=== PATIENT | female | born 1945 | race Caucasian/White ===

== ENCOUNTER 2024-01-10 05:47 | Day surgery (SDC) | payer MEDICARE ==
[2024-01-09 14:07] VITALS: BMI 40.7
[2024-01-10] MEDS ORDERED: SODIUM CHLORIDE 0.9% 1,000 ML in EMPTY BAG 1 BAG IV SCH (06:18)
[2024-01-10] MEDS ORDERED: ALPRAZolam 0.5 MG TAB PO PRN (06:18)
[2024-01-10] MEDS ORDERED: ALPRAZolam 0.25 MG TAB PO PRN (06:18)
[2024-01-10] MEDS: SODIUM CHLORIDE 0.9% 1,000 ML IV ONE (06:30)
[2024-01-10] MEDS ORDERED: ASPIRIN 325 MG TAB PO ONE (07:00)
[2024-01-10 07:07] VITALS: TEMP 97.8
[2024-01-10] MEDS: IV FLUID CONTINUATION 1,000 ML IV ONE (07:21)
[2024-01-10] MEDS ORDERED: VERAPAMIL 2.5 MG/ML 2 ML AMP ONE (07:26)
[2024-01-10] MEDS ORDERED: HEPARIN SODIUM 1,000 UN/ML (10ML VL) ONE (07:27)
[2024-01-10] MEDS ORDERED: fentaNYL (PF) 50 MCG/ML 2 ML AMP ONE (07:27)
[2024-01-10] MEDS ORDERED: LIDOCAINE 1% INJ 10MG/ML (20 ML MDV) ONE (07:27)
[2024-01-10] MEDS: BENZOCAINE SPRAY 1 CAN TOPICAL ONE (07:30)
[2024-01-10] MEDS: MIDAZOLAM 2 MG/2 ML VIAL IVP ONE ×2 (07:35→07:38)
[2024-01-10] MEDS: fentaNYL (PF) 50 MCG/ML 2 ML AMP IVP ONE (07:35)
--- NOTE | 2024-01-10 08:02 | P.PCN ---
Date of Procedure: 01/10/24 Description of Procedure: Indication: Aortic stenosis Procedure Description: After explaining the procedure to the patient, it's risk and complications, blood pressure, heart rate and O2 saturation were monitored. The throat was sprayed with Cetacaine. Patient received 3 mg intravenous Versed, 50 mcg intra venous fentanyl. The probe was introduced into the esophagus without difficulty. Images were obtained. Following that, the probe was removed. There was no immediate complication. Findings: Left atrial size is normal, left atrial appendage is normal. Left ventricular size and systolic function are normal. The mitral valve revealed mild mitral annulus calcification, the tricuspid valve is normal. The aortic valve is heavily calcified possible bicuspid or tricuspid with fused cusps. The aortic valve area by planimetry was 0.8 cm. Descending thoracic aorta showed mild atherosclerotic changes. No pericardial effusion was noted. Contrast bubble study revealed no shunting across the interatrial septum. Doppler: Pulse wave and color Doppler were obtained, and revealed mild mitral and tr icuspid regurgitation no aortic regurgitation was noted. The mean gradient across the aortic valve was 28 mmHg with a peak of 42 mmHg. There is no shunting across the interatrial septum. Conclusion: 1. Normal left ventricular size and systolic function 2. Moderate to severe aortic stenosis with no aortic regurgitation and the valve area by planimetry of 0.8 cm 3. Mild mitral and tricuspid regurgitation 4. Mild atherosclerotic changes of the descending thoracic aorta 5. No shunting across the interatrial septum Duration of sedation 15 minutes
[2024-01-10] MEDS: LIDOCAINE 1% INJ 10MG/ML (20 ML MDV) SQ ONE ×3 (08:05→08:14)
[2024-01-10] MEDS: VERAPAMIL SYRINGE (5 MG/10 ML) INTRAARTER ONE (08:14)
[2024-01-10] MEDS: HEPARIN SODIUM 1,000 UN/ML (10ML VL) IVP ONE (08:45)
[2024-01-10] MEDS: IOPAMIDOL-370 200ML BTL INJ ONE (09:00)
[2024-01-10 09:09] LABS: O2 Sat Blood Gas 99.3 %
[2024-01-10 09:10] LABS: O2 Sat Blood Gas 81.2 %
[2024-01-10] MEDS ORDERED: RX INFO: IV CONTRAST WAS GIVEN 1 EACH MISC MISCELLANE PRN (09:10)
[2024-01-10 09:12] LABS: O2 Sat Blood Gas 79.2 %
[2024-01-10] MEDS ORDERED: SODIUM CHLORIDE 0.9% 1,000 ML IV SCH (09:15)
--- NOTE | 2024-01-10 09:20 | P.CARDCATH ---
Date of Procedure: 01/10/24 Description of Procedure: Cardiac Catheterization: The patient is a 78-year-old female with a known history of paroxysmal atrial fibrillation, permanent pacemaker implantation who has a history of aortic stenosis with evidence of progression of gradient and symptoms of dyspnea. Recommendations were made regarding cardiac catheterization, the risks and the complications were discussed with the patient who is in full understanding and agreement. Procedure Description: Patient was brought to brick and blocker aid labor in fasting semi-sedated state after receiving Fentanyl and Benadryl achieiving moderate conscious sedated state. Using Xylocaine Anesthesia and modified Seldinger technique, a 6-Norwegian sheath was introduced in the right radial artery . Attempt to exchange the venous access in the right basilic vein over the wire were unsuccessful because of the inability to advance the wire. At that time using micropuncture technique a 6 Norwegian sheath was introduced in the right femoral vein. Subsequently, selective coronary angiography was performed using a 5-Norwegian 3.5 bend Maria Del Rosario catheter. Multiple views of the coronary artery including hemiaxial views were obtained. The 6 Norwegian AL-1 catheter was used to cross the aortic valve and LVEDP was calculated. Following that, catheter and sheath were removed. Hemostasis was obtained with deployment of vascular band . There was no immediate complication. Patient was returned to room in stable condition. Of note, the patient received a total of 5000 units of intravenous heparin as well as intra-arterial verapamil. Findings: Left main: This is a large size vessel, bifurcating into LAD and left circumflex, left main Short but has no obstructive disease LAD: This is a moderately sized vessel, tapers in the distal third, giving rise to 3 small to moderate diagonal branch, the LAD and its branches have no significant obstructive disease Left circumflex: This is a large nondominant vessel giving rise to a large obtuse marginal branch that has no evidence of obstructive disease RCA: This is a large size vessel, tortuous in the midsegment bifurcating distally to PDA and PLV the mid right coronary has mild intimal disease of 10 to 20% without any high-grade stenosis Left Ventriculogram: Not performed Hemodynamics: Pulmonary artery systolic 26 diastolic of 8 with a mean of 18 mmHg pulmonary capillary wedge pressure A-wave of 8 V wave of 6 with a mean of 6 mmHg, right ventricle systolic pressure of 30 with end-diastolic pressure of 6 mmHg, right atrium A wave of 5 V wave of 4 with a mean of 4 mmHg. Left ventricle end-diastolic pressure of 14 to 16 m mercury. Right ventricular systolic pressure of 180 mmHg with an ascending aorta pressure of 145 mmHg with a peak gradient of 35 mmHg, pulmonary artery saturation 79% right atrium 81%, arterial 99%. Cardiac output by Monico 9.4 L/min with an index of 4.6 L/min/m and cardiac output by thermal of 5.3 L/min with an index of 2.6 L/min/m. Valve area calculated at 0.9 cm Conclusion: 1. 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 Moderate severe aortic stenosis with aortic valve area of 0.9 cm 3. No evidence of pulmonary hypertension 4. Right dominance Recommendations: The patient will continue present medical therapy and will be further evaluated regarding the need to undergo TAVR. The findings and the recommendations were discussed with the patient and the family and they were in full understanding and agreement. Duration of sedation is 53 minutes.
[2024-01-10 11:11] VITALS: RESP 16
[2024-01-10 14:06] VITALS: BP 136/59; PULSE 63
[2024-01-10] MEDS ORDERED: PROPAFENONE 150 MG TAB PO SCH (16:00)
[2024-01-10] MEDS ORDERED: LOSARTAN 50 MG TAB PO SCH (21:00)
[2024-01-10] MEDS ORDERED: ATENOLOL 100 MG PO SCH (21:00)
== END 2024-01-10 13:03 | disposition home or self-care (01) ==
LOC: CATHCVL 05:47
PROVIDERS: ATTEND Internal Medicine Interventional Cardiology
DX: I08.3 Combined rheumatic disorders of mitral, aortic and tricuspid valves (principal); I49.5 Sick sinus syndrome; I25.10 Atherosclerotic heart disease of native coronary artery without angina pectoris; I70.0 Atherosclerosis of aorta; I48.0 Paroxysmal atrial fibrillation; I10 Essential (primary) hypertension; Z95.5 Presence of coronary angioplasty implant and graft; Z79.01 Long term (current) use of anticoagulants; Z79.899 Other long term (current) drug therapy
CPT/HCPCS: 82810; 85018; 93312; 93320; 93325; 93460

== ENCOUNTER 2024-01-12 14:47 | Emergency (ER) | payer MEDICARE ==
[2024-01-12 15:02] VITALS: RESP 18
--- NOTE | 2024-01-12 15:37 | ED ---
Skin/Abscess/FB HPI - General Chief complaint: Skin/Abscess/Foreign Body Stated complaint: post IV issues Time Seen by Provider: 01/12/24 15:32 Source: patient, RN notes reviewed Mode of arrival: ambulatory Limitations: no limitations - History of Present Illness Initial comments: 78-year-old female presenting with postop IV issues. States she had a heart catheterization 2 days ago. States that catheterization was through her right radial artery, however she had an IV in the left antecubital area. States over the past 2 days, she has had increased amount of discoloration in the left elbow. States she has a history of DVT and PE and is worried about a blood clot. Patient states she stopped her blood thinners prior to the catheterization, however continued blood thinners yesterday. Denies fever, chills, chest pain, shortness of breath. Denies pain to palpation to antecubital area. - Related Data Home Medications Medication Instructions Recorded Confirmed Losartan Potassium [Cozaar] 50 mg PO BID 11/23/14 01/12/24 Propafenone [Rythmol] 150 mg PO TID 11/23/14 01/12/24 Famotidine [Pepcid] 20 mg PO DAILY 06/07/17 01/12/24 Glucosam/John-Msm1/C/Saud/Bosw 1 tab PO DAILY 06/07/17 01/12/24 [Glucosamine-Chondroitin Tablet] Rivaroxaban [Xarelto] 15 mg PO HS 01/09/24 01/12/24 allopurinoL 100 mg PO HS 01/09/24 01/12/24 atenoloL [Tenormin] 50 mg PO BID 01/12/24 01/12/24 Allergies Allergy/AdvReac Type Severity Reaction Status Date / Time No Known Allergies Allergy Verified 01/12/24 15:28 Review of Systems ROS Statement: Those systems with pertinent positive or pertinent negative responses have been documented in the HPI. ROS Other: All systems not noted in ROS Statement are negative. Past Medical History Past Medical History: Atrial Fibrillation, Deep Vein Thrombosis (DVT), GERD/Reflux, Hypertension, Osteoarthritis (OA), Pulmonary Embolus (PE), Skin Disorder, Sleep Apnea/CPAP/BIPAP Additional Past Medical History / Comment(s): Recent hematuria starting 05/11/17/treated for UTI then told it was not a UTI-was to see Dr. 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 Hx migraines in her 20's. History of Any Multi-Drug Resistant Organisms: None Reported Past Surgical History: Breast Surgery, Hysterectomy, Orthopedic Surgery, Ton sillectomy Additional Past Surgical History / Comment(s): L ankle ORIF with a pin, L breast intraductal paploma removed. Past Anesthesia/Blood Transfusion Reactions: No Reported Reaction Additional Past Anesthesia/Blood Transfusion Reaction / Comment(s): Pt has never received blood. Hx vertigo. Past Psychological History: No Psychological Hx Reported Smoking Status: Never smoker Past Alcohol Use History: Rare Past Drug Use History: None Reported - Past Family History Father Family Medical History: Asthma, Myocardial Infarction ([place]) Additional Family Medical History / Comment(s): Father had severe asthma and when it caused a [place] at the age of 72 yrs. Mother Family Medical History: CVA/TIA Additional Family Medical History / Comment(s): Mother of a CVA at the age of 70yrs. CVAs run in pt's mother's side of family. Sister(s) Family Medical History: Cancer Additional Family Medical History / Comment(s): Breast cancer. General Exam Limitations: no limitations General appearance: alert, in no apparent distress Head exam: Present: atraumatic, normocephalic, normal inspection Eye exam: Present: normal appearance, PERRL, EOMI. Absent: scleral icterus, conjunctival injection, periorbital swelling ENT exam: Present: normal exam, mucous membranes moist Neck exam: Present: normal inspection. Absent: tenderness, meningismus, lymphadenopathy Respiratory exam: Present: normal lung sounds bilaterally. Absent: respiratory distress, wheezes, rales, rhonchi, stridor Cardiovascular Exam: Present: regular rate, normal rhythm, normal heart sounds. Absent: systolic murmur, diastolic murmur, rubs, gallop, clicks Left Upper Arm exam: Present: normal inspection, full ROM. Absent: tenderness, swelling Elbow exam: Present: full ROM. Absent: normal inspection (Diffuse dark purple discoloration of antecubital area, no palpable cord or fluctuant mass, no tenderness to palpation of area. No drainage or purulence), tenderness, swelling, abrasion Forearm Wrist exam: Present: normal inspection, full ROM. Absent: tenderness, swelling Hand Wrist exam: Present: normal inspection, full ROM. Absent: tenderness, swelling Vascular: Present: normal capillary refill, radial pulse (Full radial pulses and sensation bilaterally). Absent: vascular compromise Course Vital Signs 01/12/24 01/12/24 14:59 17:51 Temperature 97.8 F 98 F Pulse Rate 59 L 60 Respiratory 18 18 Rate Blood Pressure 174/99 167/89 O2 Sat by Pulse 95 96 Oximetry Medical Decision Making - Medical Decision Making Was pt. sent in by a medical professional or institution (, PA, MONORAIL HOOKER, urgent care, hospital, or snf...) When possible be specific @ -No Did you speak to anyone other than the patient for history (EMS, parent, family, police, friend...)? What history was obtained from this source @ -No Did you review nursing and triage notes (agree or disagree)? Why? @ -I reviewed and agree with nursing and triage notes Were old charts reviewed (outside hosp., previous admission, EMS record, old EKG, old radiological studies, urgent care reports/EKG's, snf records)? Report findings @ -No old charts were reviewed Differential Diagnosis (chest pain, altered mental status, abdominal pain women, abdominal pain men, vaginal bleeding, weakness, fever, dyspnea, syncope, headache, dizziness, GI bleed, back pain, seizure, CVA, palpatations, mental health, musculoskeletal)? @ -Differential Musculoskeletal Superficial thrombophlebitis, muscular strain, contusion, ligament sprain, fracture, arthritis, septic arthritis, bursitis, cellulitis, muscle spasm, nerve compression, DVT, arterial occlusion, herpes zoster, electrolyte abnormality, tumor.... This is not meant to be in all inclusive list EKG interpreted by me (3pts min.). @ -None X-rays interpreted by me (1pt min.). @ -None done CT interpreted by me (1pt min.). @ -None done U/S interpreted by me (1pt. min.). @ -Ultrasound revealed no DVT, no left antecubital hematoma, there is a partially thrombosed left basilic vein at area of bruising What testing was considered but not performed or refused? (CT, X-rays, U/S, labs)? Why? @ -None What meds were considered but not given or refused? Why? @ -None Did you discuss the management of the patient with other professionals (professionals i.e. , PA, MONORAIL HOOKER, lab, RT, psych nurse, social sciences chair, industrial relations commissioner, teacher, staff mine warfare officer, family independence case manager)? Give summary @ -No Was smoking cessation discussed for >3mins.? @ -No Was critical care preformed (if so, how long)? @ -No Were there social determinants of health that impacted care today? How? (Homelessness, low income, unemployed, alcoholism, drug addiction, transportation, low edu. Level, literacy, decrease access to med. care, [facility], rehab)? @ -No Was there de-escalation of care discussed even if they declined (Discuss DNR or withdrawal of care, Hospice)? DNR status @ -No What co-morbidities impacted this encounter? (DM, HTN, Smoking, COPD, CAD, Cancer, CVA, ARF, Chemo, Hep., AIDS, mental health diagnosis, sleep apnea, morbid obesity)? @ -None Was patient admitted / discharged? Hospital course, mention meds given and route, prescriptions, significant lab abnormalities, going to OR and other [facility] info. @ -Patient was discharged. Patient was seen and evaluated for left antecubital bruising x 2 days status post IV placement. Patient has history of DVT and is on Xarelto. No sign of bacterial infection, however there is diffuse contusion of antecubital area. Neurovascularly intact. Ultrasound reveals partially thrombosed left basilic vein at area of bruising, no DVT or left antecubital hematoma. As this is a partially thrombosed superficial vein that is greater than 2 inches from axilla, intervention is not necessary at this time. Discussed diagnosis of superficial thrombophlebitis with patient. Supportive care discussed. Advised patient to continue taking Xarelto as directed and return with new or worsening symptoms. Patient is agreeable to plan. Discussed case with my ED attending Dr. Mckeon. Patient discharged in stable condition. Undiagnosed new problem with uncertain prognosis? @ -No Drug Therapy requiring intensive monitoring for toxicity (Heparin, Nitro, Insu leatha, Cardizem)? @ -No Were any procedures done? @ -No Diagnosis/symptom? @ -Superficial thrombophlebitis of left arm Acute, or Chronic, or Acute on Chronic? @ -Acute Uncomplicated (without systemic symptoms) or Complicated (systemic symptoms)? @ -Uncomplicated Side effects of treatment? @ -No Exacerbation, Progression, or Severe Exacerbation? @ -No Poses a threat to life or bodily function? How? (Chest pain, [place], [place], pneumonia, PE, COPD, DKA, ARF, appy, cholecystitis, CVA, Diverticulitis, Homicidal, Suicidal, threat to staff... and all critical care pts) @ -Unlikely Disposition Clinical Impression: Superficial thrombophlebitis of arm Disposition: HOME SELF-CARE Condition: Stable Instructions (If sedation given, give patient instructions): Superficial Thrombophlebitis (ED) Additional Instructions: Continue Xarelto. Use heat to area as discussed. Please return to the Emergency Department if symptoms worsen or any other concerns. Is patient prescribed a controlled substance at d/c from ED?: No Referrals: Omega Nava DO [Primary Care Provider] - 1-2 days Time of Disposition: 17:36
--- NOTE | 2024-01-12 16:34 | US ---
EXAMINATION TYPE: US venous doppler duplex UE LT DATE OF EXAM: 01/12/2024 COMPARISON: NONE CLINICAL INDICATION: Female, 78 years old with history of hematoma left elbow; IV on Monday SIDE PERFORMED: left Left Arm: Negative for DVT exam limited by small vessel caliber IMPRESSION: Grayscale, color doppler, spectral doppler imaging performed of the deep veins of the left upper extr emity. There is normal flow, compressibility and vascular waveforms. There is no evidence of left up per extremity DVT.
--- NOTE | 2024-01-12 16:37 | US ---
EXAMINATION TYPE: US extremity nonvasculr ltd DATE OF EXAM: 01/12/2024 COMPARISON: NONE CLINICAL INDICATION: Female, 78 years old with history of left antecubital hematoma; hematoma from IV on Monday TECHNIQUE: several images taken at area of concern FINDINGS: no hematoma, there is however a partially thrombosed varicose vein at the area of bruising IMPRESSION: 1. No left antecubital hematoma. 2. Partially thrombosed left basilic vein in the area of bruising within the left upper extremity.
[2024-01-12 17:53] VITALS: BP 167/89; PULSE 60; TEMP 98
== END 2024-01-12 17:53 | disposition home or self-care (01) ==
LOC: EC 14:47
DX: I80.8 Phlebitis and thrombophlebitis of other sites (principal)
CPT/HCPCS: 99283

== ENCOUNTER → 2024-03-01 | Outpatient (CLI) | payer MEDICARE ==
--- NOTE | 2024-03-01 14:10 | US ---
EXAMINATION TYPE: US kidneys/renal and bladder DATE OF EXAM: 03/01/2024 COMPARISON: US 05/21/2021 CLINICAL INDICATION: Female, 78 years old with history of R31.0 HEMATURIA; Pt states recurrent UTI, b lood in urine TECHNIQUE: Grayscale and color Doppler imaging of the bilateral kidneys and urinary bladder: FINDINGS: EXAM MEASUREMENTS: Right Kidney: 9.2 x 4.9 x 4.6 cm Left Kidney: 9.9 x 4.1 x 4.0 cm Right Kidney: No evidence of hydro, possible 8mm echogenic foci mid Left Kidney: No evidence of hydro, possible 7mm echogenic foci mid Bladder: wnl Bilateral Jets seen: Yes There is no evidence for hydronephrosis at this point in time. Bilateral renal calculi. Cortical medu llary differentiation is maintained bilaterally. No masses are identified. The urinary bladder is an echoic. Bilateral ureteral jets are seen. IMPRESSION: 1. No hydronephrosis. 2. Nonobstructive bilateral renal calculi. [facility], , 03/01/2024 2:08 PM
== END | disposition home or self-care (01) ==
LOC: RADUSWWP 13:22
PROVIDERS: ATTEND Family Medicine
CPT/HCPCS: 76770